=== PATIENT | male | born 1960 | race Caucasian/White ===

== ENCOUNTER 2016-04-23 14:17 | Emergency (ER) | payer BC, MEDICARE ==
[~2016-04-23] VITALS: Ht 175.3 cm; Wt 72.6 kg
[~2016-04-23 14:17] MED LIST: ALTACE10 MG PO; ASPI-COR81 M1 PO; CLONAZEPAM0.5 M1 PO; EFFEXOR75 MG PO; JANUMET XR1 TER PO; LIPITOR40 M1 PO; LORTAB 5/500 501 TAB PO; MULTIVITAMIN1 TAB PO; NEXIUM20 MG PO; PLAVIX75 MG PO; ROBAXIN-750750 MG PO; TOPROL XL 100M100 MG PO; TRAMADOL50 M1 PO; VITAMIN D31000 I1 PO
[2016-04-23] MEDS ORDERED: METFORMIN500 MG PO (14:38)
[2016-04-23] MEDS ORDERED: GLIMEPIRIDE 2MG2 MG PO (14:39)
[2016-04-23 14:50] LABS: HEMOGLOBIN 16.2 g/dL (14.1-18.0); LYMPH # 2.1 K/mm3 (0.7-4.5); LYMPH % 17.2 % (10-50)
--- NOTE | 2016-04-23 15:02 | Emergency Room Report ---
History of Present Illness Time Seen by MD Abraham Presenting Problem in Triage Pt arrived:Wheelchair Presenting Problem:VOMITING AND DIARRHEA SINCE 199--FEELS WEAK-- Onset of symptoms date/time:04/23/16 or onset unknown for: Treatment Prior to Arrival: BIOLOGICAL SCIENTIST Provided by: Sepsis Risk Assessment: Temp: 98.1 B/P: 159/97 MAP: 117 Pulse: 82 Resp: 20 Recent fever? N Clinical Suspician of Infection? N Mental Status: 1 - Regular (Normal Baseline) Sepsis Risk:Low Sepsis Risk Have you (or family members/close friends) recently traveled outside the [place]? N If Yes, where/when: Have you had exposure to infectious disease within the past month? N TB? Other? Specify: Source patient, family (daughter) Exam Limitations no limitations Comment Pt presents to ER with complaints of no appetite for 4 days, nausea and vomiting since 199, diarrhea, mild upper ABD pain, and fatigue. He also complains of bilateral foot pain that has been present for "years." He was recently treated for a "cold" with antibiotics, and just started B-12 orally once daily. Hx of diabetes, severe peripheral neuropathy, HTN, CAD with stent placement, B-12 deficit. Timing/Duration this morning Severity moderate Associated Symptoms nausea, vomiting, abdominal pain, cough, diarrhea, weakness ALLERGIES Coded Allergies: propoxyphene (02/27/15) hydrocodone (From LORTAB) (Mild, NA-NAUSEA/VOMITING 02/27/15) Home Medications Reported Medications Clopidogrel Bisulfate (Plavix) 75 MG PO QHS Aspirin (Aspi-Cor) 81 MG PO QHS Ramipril (Altace 10MG) 10 MG PO DAILY METOPROLOL SUCCINATE (Toprol Xl) 100 MG PO QHS Atorvastatin Calcium (Lipitor 40MG) 40 MG PO DAILY Metformin HCL (Metformin) 500 MG PO DAILY Glimepiride (Glimepiride 2MG Tablet) 4 MG PO DAILY Venlafaxine Hydrochloride (Effexor 75MG) 150 MG PO DAILY Clonazepam (Clonazepam 0.5MG) 0.5 MG PO TID MULTIVITAMIN (Multiple Vitamins) 1 TAB PO DAILY Esomeprazole Magnesium (Nexium) 20 MG PO DAILY History Medical History General CAD? Yes Angina: Yes [place]: No Hypertension? Yes Hyperlipidemia? Yes CHF? No DVT? No PE? No COPD? No Asthma? No Anemia? No GERD? Yes Gastric ulcers? No GI Bleed? No Hernia? No Thyroid Problems? No Hypothyroidism? No CVA? No Seizures? No Diabetes? Yes Insulin Dependent: No Insulin Pump: No Home FSBS? Yes Renal Insuffiency? No End Stage Renal Disease? No UTI? No Stones? No BPH? No GB Disease: No Nephritic Syndrome? No Asplenia? No Hepatitis? No Sickle Cell Disease? No Arthritis? Yes Migraines? No Cataracts? No Glaucoma? No MRSA? No HIV? No TB? No Anxiety? Yes Depression? Yes Cancer? No More? No Immunization Hx DT/Tetanus UNKNOWN Flu NEVER Pneumonia NEVER Surgical Hx Previous Surgery?Y CABG 03/07 LEFT ELBOW PTCA WITH STENTS 05/10 Family History Family Hx Diabetes No CAD Yes Hypertension Yes Hyperlipidemia Yes Cancer Yes TB No Social History Smoking Hx Smoker: Current Every Day Smoker Tobacco: Yes Type Cigarettes Packs/day < 1 Pack Are you/the child exposed to second-hand smoke: Yes Alcohol Alcohol: No Review of Systems All Other Systems Reviewed and Negative Constitutional weakness Respiratory cough Gastrointestinal diarrhea, nausea, vomiting Physical Exam Vital Signs Vital Signs Date Time Temp Pulse Resp B/P Pulse O2 O2 Flow FiO2 Ox Delivery Rate 04/23 1637 86 20 171/91 97 04/23 1553 89 20 169/89 97 04/23 1421 98.1 82 20 159/97 97 General Appearance WD/WN, fatigued, thin Eye Exam - bilateral eye normal exam, bilateral eye PERRL, bilateral eye EOMI Ear, Nose, Throat hearing grossly normal, normal ENT inspection Neck normal inspection, non-tender, supple, full range of motion Respiratory Status Yes: trachea midline, chest symmetrical, non tender chest. No: respiratory distress. Lung Sounds bilateral: normal breath sounds, lungs clear. 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 No Results/Orders Laboratory Tests 04/23/16 1700: Creatine Kinase Cancelled, CK-MB (CK-2) Rel Index Cancelled, CK and CKMB Interp Cancelled, Troponin I Cancelled 04/23/16 1630: Urine Color YELLOW, Urine Appearance CLEAR, Urine pH 6.0, Ur Specific [place] 1.010, Urine Protein NEGATIVE, Urine Ketones 1+ H, Urine Blood NEGATIVE, Urine Nitrate NEGATIVE, Urine Bilirubin NEGATIVE, Urine Urobilinogen 0.2, Ur Leukocyte Esterase NEGATIVE, Urine RBC OCC, Urine WBC OCC, Ur Squamous Epith Cells OCC, Urine Bacteria 1+, Urine Mucus OCC, Urine Glucose NEGATIVE 04/23/16 1435: Vitamin B6 Pending 04/23/16 1435: Creatine Kinase 38 L, CK-MB (CK-2) Rel Index 1.3, CK and CKMB Interp < 0.5, Troponin I < 0.02 04/23/16 1435: Magnesium 1.5, Amylase 32, Lipase 51 L 04/23/16 1435: Sodium 141, Potassium 4.3, Chloride 103, Carbon Dioxide 28, BUN 11, Creatinine 0.7 L, Estimated Creat Clear 118, Estimated GFR (MDRD) 116, Glucose 139 H, Calcium 9.9, Total Bilirubin 0.7, AST 11 L, ALT 18, Alkaline Phosphatase 126 H , Total Protein 7.9, Albumin 4.0, Globulin 3.9 H, Albumin/Globulin Ratio 1.0 L , WBC 12.3 H, RBC 4.94, Hgb 16.2, Hct 44.5, MCV 90.1, RDW 13.2, Plt Count 152, MPV 9.7, Gran % 78.7, Gran # 9.7 H, Lymphocytes % 17.2, Monocytes % 3.9, Eosinophils % 0.1, Basophils % 0.2, Lymphocytes # 2.1, Monocytes # 0.5, Eosinophils # 0.0, Basophils # 0.0, PUBS MCHC 36.4 H, MCH 32.8 H Current Medication Orders Sig/Bobbi Start time Last Medication Dose Route Stop Time Status Admin Sodium Chloride 10 ML PRN PRN 04/23 1445 AC IV 04/24 1442 Sodium Chloride 1,000 ML .Q1H1M 04/23 1445 DC 04/23 IV 04/23 1545 1445 Sodium Chloride 10 ML PRN PRN 04/23 1445 AC IV 04/24 1443 Sodium Chloride 1,000 ML .STK-MED ONE 04/23 1437 DC IV Orders Procedure Date/time Status DIET-NOTHING BY MOUTH 04/23 D Active CARDIAC ENZYMES 04/[address] ABD & PELVIS W/O CONTRAST 04/[address] ABD/PELVIS REQ 04/23 1547 Complete ELECTROCARDIOGRAM REQUEST 04/23 1504 Active CHEST(2 VIEWS-NOT PORTABLE) 04/23 1503 Active ABDOMEN-FLAT & UPRIGHT 04/23 1503 Active MANAGER FIRE 04/23 1503 Active 12 LEAD EKG-ABHINAV (INITIAL) 04/23 1500 Active DIARRHEA PANEL, PCR 04/23 1453 Active IV SALINE LOCK 04/23 1443 Active URINALYSIS/COMPLETE 04/23 1443 Complete MAGNESIUM 04/23 1443 Complete LIPASE 04/23 1443 Complete CBC WITH AUTO DIFF 04/23 1443 Complete CHEM 12 PROFILE 04/23 1443 Complete VITAMIN B6-PYRIDOXAL PHOSPHATE 04/23 1443 Active AMYLASE 04/23 1443 Complete CM/EKG CM/shingler Rhythm Normal Sinus Rhythm Rate 69 XRAY/CT/US XRAY/CT/US XRAY chest, abdomen XR interpretation by reviewed by me Comment Increased stool thru-out colon, possible infiltrates RLL, LLL CT abdomen, pelvis Comment Vrad results read. Progress ED Progress Notes Time 1630 Comment Pt resting comfortably, notified of results so far, waiting for Ct Results Departure Departure Time of Disposition 171 Disposition DC Home or Self Care(routine) Clinical Impression Primary Impression: Viral gastroenteritis Secondary Impressions: Diarrhea Qualifiers: Diarrhea type: unspecified type Qualified Code: R19.7 - Diarrhea, unspecified Nausea and vomiting in adult patient Peripheral neuropathy Qualifiers: Peripheral neuropathy type: mononeuropathy due to underlying disease Qualified Code: G59 - Mononeuropathy in diseases classified elsewhere Condition STABLE Referrals Matias Mai MD: 2 Days-Call Office Needs to see MD in 2 days Patient Instructions DI for Diarrhea and Traveler's Diarrhea -- Adult, DI for Nausea -- Adult, DI for Viral Gastroenteritis -- Adult, Peripheral Neuropathy Additional Instructions Increase fluids, sipping initially. Patient has promethazine at home to take. Emanuel/bratty diet as tolerated. Must F/U with Dr Mai. Recommend stool studies to R/O c diff if diarrhea persists. He was unable to give us a stool sample today while in the ER. Discharge Counseling Counseled pt/family regarding diagnosis, test results, home care, follow up needs ED Critical Care Critical Care No Comments Increase fluids, sipping initially. Patient has promethazine at home to take. Emanuel/bratty diet as tolerated. Must F/U with Dr Mai. Recommend stool studies to R/O c diff if diarrhea persists. He was unable to give us a stool sample today while in the ER. at [phone]
[2016-04-23 16:42] LABS: URINE BILIRUBIN - DIPSTICK NEGATIVE (NEG); URINE BLOOD NEGATIVE (NEG)
[2016-04-23 16:48] LABS: URINE SQUAMOUS CELLS OCC #/hpf (OCC)
[2016-04-23 17:35] VITALS: BP 165/85
--- NOTE | 2016-04-24 08:13 | RADIOLOGY REPORT PS360 ---
ABDOMEN-FLAT UPRIGHT HISTORY: Nausea, vomiting, diarrhea n/v/d ORDERING PHYSICIAN: CURRY GRUBER PATIENT AGE: 56 years COMPARISON: None FINDINGS: Nonspecific nonobstructive bowel gas pattern No urolithiasis. No free air No acute bony anomalies. IMPRESSION: Nonspecific bowel gas pattern, no definite acute finding
--- NOTE | 2016-04-24 08:14 | RADIOLOGY REPORT PS360 ---
CHEST(2 VIEWS-NOT PORTABLE) HISTORY: Nausea, vomiting, diarrhea n/v/d ORDERING PHYSICIAN: CURRY GRUBER PATIENT AGE: 56 years COMPARISON: 03/28/2015 FINDINGS: There is been a prior median sternotomy. There is COPD with chronic changes in the lower lobes no evidence of CHF. No effusions or infiltrates.. The lungs are clear without infiltrates, suspicious nodules, or pleural effusions. No acute bony abnormalities. IMPRESSION: COPD with chronic changes, no change with no acute finding
--- NOTE | 2016-04-24 11:10 | RADIOLOGY REPORT PS360 ---
CT ABD PELVIS W/O CONTRAST CLINICAL INDICATION: ABDOMINAL PAIN, N/V/D ORDERING PHYSICIAN: CURRY GRUBER PATIENT AGE: 56 years COMPARISON: None TECHNIQUE: Axial images obtained with sagittal and coronal reformats. PROCEDURE: Oral Contrast: None IV Contrast: None . FINDINGS: Lower thorax: 3 mm oval density right lung base seen on the most superior image with internal lucency nonspecific and could represent bronchitis or small cavitary lesion. Dedicated chest CT may provide further evaluation. ABDOMEN: Liver: No masses or biliary dilatation. Gallbladder: Nondistended. No radio opaque stones. Pancreas: Atrophic changes of the pancreas. No obvious pancreatic mass or peripancreatic fluid collection Spleen: Unremarkable. Adrenals: 2.7 cm hypodense lesion of the left adrenal gland consistent with an adenoma Kidneys/ureters: No masses. No renal calculi. No hydronephrosis. No perinephric fluid collections. No ureteral dilatation or obvious ureteral calculi. Stomach bowel: Nondistended. No obvious mass or thickening. Appendix: No evidence of appendicitis. PELVIS: Reproductive: Unremarkable Bladder: Nondistended. No obvious stones or masses. ABDOMEN & PELVIS: Peritoneum: No abnormal fluid collections. No obvious inflammatory changes. No free air. Lymph nodes: No enlarged lymph nodes apparent. Vasculature: Minimal ectasia of the infrarenal abdominal aorta at 2.7 cm Bones: Mild wedging of T11 which appears chronic with a Schmorl's node along the superior endplate IMPRESSION: 1. No acute intra-abdominal or pelvic pathology. 2. Left adrenal adenoma. 3. 3 mm nodular opacity right lower lobe nonspecific
[2016-05-03] MEDS ORDERED: FLEXERIL10 MG PO (15:45)
[2016-05-03] MEDS ORDERED: NAPROXEN SODIU500 MG PO (15:45)
== END 2016-04-23 17:35 | disposition home or self-care (01) ==
LOC: ER 14:17
PROVIDERS: Emergency Medicine
DX: K52.9 Noninfective gastroenteritis and colitis, unspecified (principal); R19.7 Diarrhea, unspecified; R11.0 Nausea; G59 Mononeuropathy in diseases classified elsewhere; K21.9 Gastro-esophageal reflux disease without esophagitis; Z72.0 Tobacco use; I25.10 Atherosclerotic heart disease of native coronary artery without angina pectoris; I10 Essential (primary) hypertension; E11.9 Type 2 diabetes mellitus without complications

== ENCOUNTER → 2016-05-14 | Outpatient (CLI) | payer BC, MEDICARE ==
[~2016-05-14] MED LIST changes: +FLEXERIL10 MG PO; +GLIMEPIRIDE 2MG2 MG PO; +METFORMIN500 MG PO; +NAPROXEN SODIU500 MG PO
--- NOTE | 2016-05-15 07:03 | RADIOLOGY REPORT PS360 ---
MRI-L-SPINE W/O HISTORY: Low back pain with left leg pain and numbness and tingling LOW BACK PAIN ORDERING PHYSICIAN: SHAN ACEVEDO PATIENT AGE: 56 years COMPARISON: 11/29/2014 TECHNIQUE: Standard multiplanar multiecho sequences are performed without contrast. 3-D MIP and myelographic images are also rendered and reviewed FINDINGS: There is normal alignment. Spinal cord ends at the L1 level. The disc spaces are well-preserved and well hydrated. No disc herniation or canal stenosis. There is minimal bulging disc with facet hypertrophic change at L4-L5 with mild bilateral foraminal narrowing and mild narrowing of the spinal canal not significant change. There is mild facet and ligamentum hypertrophy at L3-L4 with mild bilateral lateral recess and foraminal narrowing. IMPRESSION: 1. No disc herniation. 2. Minimal bulging disc L4-L5 with mild narrowing of the spinal canal. 3. Mild facet ligamentous hypertrophy at L3-L4 and L4-L5 with mild bilateral lateral recess and foraminal narrowing as before.
== END ==
LOC: RAD 13:36
DX: M54.5 Low back pain (principal); Z95.5 Presence of coronary angioplasty implant and graft